=== PATIENT | female | born 1945 | race Caucasian/White ===

== ENCOUNTER 2016-12-08 15:14 | Inpatient (IN) | payer MEDICARE ==
[~2016-12-08] VITALS: Ht 162.6 cm; Wt 58.1 kg
[~2016-12-08 15:14] MED LIST: AMLO5TAB2 PO; Aspirin PO; CARB200T13 PO; DOCU-30 PO; DULO30CA2 PO; GABA100C8 PO; HYDR-3144 PO; HYDR-3343 PO; INSU100I18 SQ-INSULIN; INSU300I SQ; MELA3TAB PO; PRED10TA PO; RANI150T8 PO; TRAM50TA2 PO; VENL25TA PO; VENL75CA6 PO
[2016-12-08] MEDS ORDERED: SODIUM CHLORIDE FLUSH 10ML SYR IVF ONE (16:30)
[2016-12-08 16:46] LABS: HEMOGLOBIN 9.9 g/dL (11.7-16.4)
[2016-12-08] MEDS ORDERED: METH750T2 PO (16:56)
[2016-12-08] MEDS ORDERED: RANI300C PO (16:57)
[2016-12-08] MEDS ORDERED: MORP30SU PO (16:57)
[2016-12-08] MEDS ORDERED: INSU100V8 SQ (16:58)
[2016-12-08 17:07] LABS: BLOOD UREA NITROGEN 18 mg/dL (7-18)
[2016-12-08 17:32] LABS: ASPARTATE AMINO TRANSFERASE 16 U/L (15-37)
[2016-12-08 18:21] LABS: PATH.CAST-FLAG NOT PRESENT; SPERM-FLAG NOT PRESENT; SRC-FLAG NOT PRESENT; XTAL-FLAG NOT PRESENT; YLC-FLAG NOT PRESENT
[2016-12-08] MEDS ORDERED: LABETALOL 5MG/ML, 20ML IVPush ONE (18:30)
[2016-12-08] MEDS ORDERED: ENALAPRILAT 1.25 MG/ML, 2ML IV ONE (18:30)
[2016-12-08] MEDS ORDERED: ENALAPRILAT 1.25 MG/ML, 2ML ONE (18:49)
[2016-12-08] MEDS ORDERED: NS + 20MEQ KCL 1,000 ML IV SCH (18:56)
[2016-12-08] MEDS ORDERED: ONDANSETRON 2MG/ML, 2ML IVP PRN (19:00)
[2016-12-08] MEDS: HEPARIN 5,000 UNITS/ML, 1ML SQ SCH (19:00)
[2016-12-08] MEDS ORDERED: ENALAPRILAT 1.25 MG/ML, 2ML IV PRN (19:00)
[2016-12-08] MEDS ORDERED: POLYETHYLENE GLYCOL 17 GM PACKET PO PRN (19:00)
[2016-12-08] MEDS ORDERED: BISACODYL 10 MG SUPP PR PRN (19:00)
[2016-12-08] MEDS ORDERED: POTASSIUM CHLORIDE 10% 20 MEQ/15 ML UDC ONE (19:17)
[2016-12-08] MEDS ORDERED: POTASSIUM CHLORIDE 20 MEQ TAB.ER.PRT ONE (19:20)
[2016-12-08] MEDS ORDERED: GADOBUTROL 7.5 MMOL/7.5 ML PFS ONE (19:29)
[2016-12-08] MEDS ORDERED: POTASSIUM CHLORIDE 20 MEQ TAB.ER.PRT PO ONE (19:30)
[2016-12-08] MEDS ORDERED: LABETALOL 5MG/ML, 20ML ONE (19:44)
[2016-12-08] MEDS ORDERED: ONDANSETRON 2MG/ML, 2ML ONE (20:04)
[2016-12-08] MEDS ORDERED: MORPHINE SULFATE 4 MG/ML, 1ML ONE (20:04)
[2016-12-08] MEDS ORDERED: MORPHINE SULFATE 4 MG/ML, 1ML IVPush ONE (20:30)
[2016-12-08 20:42] VITALS: BP 181/77
[2016-12-08] MEDS ORDERED: MORPHINE SULFATE 30 MG PO SCH (21:00)
[2016-12-08] MEDS: CARBAMAZEPINE XR 200 MG TABLET PO SCH (21:00)
[2016-12-08] MEDS ORDERED: MELATONIN 3 MG TABLET PO SCH (21:00)
[2016-12-08] MEDS ORDERED: FAMOTIDINE 40 MG TABLET PO SCH (21:00)
[2016-12-08] MEDS: INSULIN DETEMIR 100 UNITS/ML, PEN SQ-INSULIN SCH (21:30)
[2016-12-08] MEDS: GABAPENTIN 100 MG CAPSULE PO SCH (22:13)
[2016-12-08] MEDS: METHOCARBAMOL 750 MG TABLET PO SCH (22:14)
[2016-12-08] MEDS: VENLAFAXINE 75 MG CAP ER PO SCH (22:14)
[2016-12-08] MEDS: CHLORTHALIDONE 25 MG TABLET PO SCH (22:14)
[2016-12-08] MEDS: DOCUSATE 100 MG CAPSULE PO SCH (22:56)
[2016-12-08] MEDS ORDERED: CARBAMAZEPINE 100 MG TAB.CHEW PO ONE (23:00)
[2016-12-09 02:35] VITALS: BP 139/60
[2016-12-09 05:28] LABS: HEMOGLOBIN 8.6 g/dL (11.7-16.4)
[2016-12-09 05:49] LABS: ASPARTATE AMINO TRANSFERASE 11 U/L (15-37); BLOOD UREA NITROGEN 18 mg/dL (7-18)
[2016-12-09 06:40] VITALS: BP 117/64
[2016-12-09] MEDS: HEPARIN 5,000 UNITS/ML, 1ML SQ SCH (08:25)
[2016-12-09] MEDS: GABAPENTIN 100 MG CAPSULE PO SCH ×3 (08:26→21:44)
[2016-12-09] MEDS: CHLORTHALIDONE 25 MG TABLET PO SCH (08:26)
[2016-12-09] MEDS: SENNA/DOCUSATE TABLET PO SCH (08:26)
[2016-12-09] MEDS: VENLAFAXINE 75 MG CAP ER PO SCH ×2 (08:27→21:00)
[2016-12-09] MEDS: CARBAMAZEPINE HOMEMEDPO SCH ×2 (08:28→16:39)
[2016-12-09] MEDS: CARBAMAZEPINE XR 200 MG TABLET PO SCH ×2 (08:30→16:41)
[2016-12-09] MEDS: DOCUSATE 100 MG CAPSULE PO SCH ×2 (08:32→21:49)
[2016-12-09 15:26] VITALS: BP 155/70
[2016-12-09] MEDS ORDERED: MELATONIN 3 MG TABLET PO PRN (16:30)
[2016-12-09] MEDS: ENOXAPARIN 40 MG/0.4 ML SQ SCH (17:15)
[2016-12-09 18:55] VITALS: BP 138/65
[2016-12-09] MEDS: INSULIN DETEMIR 100 UNITS/ML, PEN SQ-INSULIN SCH (21:00)
[2016-12-09] MEDS: METHOCARBAMOL 750 MG TABLET PO SCH (21:44)
[2016-12-10 02:17] VITALS: BP 157/60
[2016-12-10 05:07] LABS: HEMOGLOBIN 8.6 g/dL (11.7-16.4)
[2016-12-10 06:04] LABS: BLOOD UREA NITROGEN 25 mg/dL (7-18)
[2016-12-10] MEDS: LEVOTHYROXINE 25 MCG TABLET PO SCH (06:09)
[2016-12-10 07:10] VITALS: BP 131/50
[2016-12-10] MEDS: CHLORTHALIDONE 25 MG TABLET PO SCH ×2 (09:34→10:46)
[2016-12-10] MEDS: GABAPENTIN 100 MG CAPSULE PO SCH ×4 (09:34→21:25)
[2016-12-10] MEDS: DOCUSATE 100 MG CAPSULE PO SCH ×3 (09:34→21:23)
[2016-12-10] MEDS: VENLAFAXINE 75 MG CAP ER PO SCH ×3 (09:34→21:00)
[2016-12-10] MEDS: SENNA/DOCUSATE TABLET PO SCH ×2 (09:35→10:46)
[2016-12-10] MEDS ORDERED: MORP30TA PO (11:55)
[2016-12-10] MEDS ORDERED: CARB100T4 PO (11:59)
[2016-12-10] MEDS ORDERED: RANI150C PO (12:04)
[2016-12-10 15:32] VITALS: BP 136/56
[2016-12-10] MEDS: ENOXAPARIN 40 MG/0.4 ML SQ SCH (17:15)
[2016-12-10 18:32] VITALS: BP 155/62
[2016-12-10] MEDS: INSULIN DETEMIR 100 UNITS/ML, PEN SQ-INSULIN SCH (21:00)
[2016-12-10] MEDS: METHOCARBAMOL 750 MG TABLET PO SCH (21:24)
[2016-12-11 01:47] VITALS: BP 143/96
[2016-12-11 04:53] LABS: HEMOGLOBIN 8.8 g/dL (11.7-16.4)
[2016-12-11 05:04] LABS: BLOOD UREA NITROGEN 22 mg/dL (7-18)
[2016-12-11] MEDS: LEVOTHYROXINE 25 MCG TABLET PO SCH (06:10)
[2016-12-11 07:36] VITALS: BP 175/69
[2016-12-11] MEDS: VENLAFAXINE 75 MG CAP ER PO SCH ×2 (09:00→21:00)
[2016-12-11] MEDS: DOCUSATE 100 MG CAPSULE PO SCH ×3 (09:00→21:24)
[2016-12-11] MEDS: SENNA/DOCUSATE TABLET PO SCH (10:12)
[2016-12-11] MEDS: CHLORTHALIDONE 25 MG TABLET PO SCH (10:14)
[2016-12-11] MEDS: GABAPENTIN 100 MG CAPSULE PO SCH ×3 (10:14→21:26)
[2016-12-11 13:51] VITALS: BP 176/67
[2016-12-11] MEDS: ENOXAPARIN 40 MG/0.4 ML SQ SCH (16:22)
[2016-12-11 18:39] VITALS: BP 183/70
[2016-12-11] MEDS: METHOCARBAMOL 750 MG TABLET PO SCH (21:25)
[2016-12-11] MEDS: INSULIN DETEMIR 100 UNITS/ML, PEN SQ-INSULIN SCH (21:33)
[2016-12-12] VITALS (7 sets, daily range): BP systolic 163–191; BP diastolic 64–79
[2016-12-12 05:37] LABS: HEMOGLOBIN 9.3 g/dL (11.7-16.4)
[2016-12-12] MEDS: LEVOTHYROXINE 25 MCG TABLET PO SCH (06:05)
[2016-12-12 06:09] LABS: ASPARTATE AMINO TRANSFERASE 16 U/L (15-37); BLOOD UREA NITROGEN 19 mg/dL (7-18)
[2016-12-12] MEDS ORDERED: LEVOTHYROXINE 100 MCG INJ IVPush ONE (09:30)
[2016-12-12] MEDS: VENLAFAXINE 75 MG CAP ER PO SCH ×2 (10:06→21:00)
[2016-12-12] MEDS: CHLORTHALIDONE 25 MG TABLET PO SCH (10:07)
[2016-12-12] MEDS: DOCUSATE 100 MG CAPSULE PO SCH ×2 (10:08→21:44)
[2016-12-12] MEDS: SENNA/DOCUSATE TABLET PO SCH (10:08)
[2016-12-12] MEDS: GABAPENTIN 100 MG CAPSULE PO SCH ×3 (10:08→21:44)
[2016-12-12 13:06] LABS: ALBUMIN 2.9 g/dL (2.9-4.4); ALPHA-1-GLOBULIN 0.3 g/dL (0.0-0.4); GAMMA GLOBULIN 0.6 g/dL (0.4-1.8); PROTEIN TOTAL 5.8 g/dL (6.0-8.5)
[2016-12-12] MEDS ORDERED: MORPHINE SULFATE 4 MG/ML, 1ML ONE (15:36)
[2016-12-12] MEDS ORDERED: MAGNESIUM SULFATE PMX 2GM/50ML 50 ML IV ONE (16:00)
[2016-12-12] MEDS ORDERED: MORPHINE SULFATE 4 MG/ML, 1ML IV ONE (16:00)
[2016-12-12 16:28] LABS: IS PT STATUS REG ER OR PRE ER? NO
[2016-12-12] MEDS ORDERED: NITROGLYCERIN 0.4 MG/SPRAY SL PRN (16:30)
[2016-12-12] MEDS ORDERED: NITROGLYCERIN 0.4 MG BOTTLE (25 TABS) SL PRN (16:30)
[2016-12-12] MEDS ORDERED: MORPHINE SULFATE 4 MG/ML, 1ML IVPush PRN (16:30)
[2016-12-12] MEDS: ENOXAPARIN 40 MG/0.4 ML SQ SCH (18:24)
[2016-12-12] MEDS: AMLODIPINE 5 MG TABLET PO SCH (21:00)
[2016-12-12 21:36] LABS: IS PT STATUS REG ER OR PRE ER? NO
[2016-12-12] MEDS: INSULIN DETEMIR 100 UNITS/ML, PEN SQ-INSULIN SCH (21:45)
[2016-12-12] MEDS: METHOCARBAMOL 750 MG TABLET PO SCH (21:45)
[2016-12-13 01:17] VITALS: BP 151/68
[2016-12-13] MEDS: ACETAMINOPHEN 325 MG TABLET PO PRN ×2 (01:38→14:08)
[2016-12-13] MEDS: LEVOTHYROXINE 25 MCG TABLET PO SCH (04:56)
[2016-12-13 06:36] LABS: HEMOGLOBIN 9.4 g/dL (11.7-16.4)
[2016-12-13 06:44] LABS: BLOOD UREA NITROGEN 18 mg/dL (7-18)
[2016-12-13 06:52] LABS: IS PT STATUS REG ER OR PRE ER? NO
[2016-12-13 07:38] VITALS: BP 155/71
[2016-12-13] MEDS: AMLODIPINE 5 MG TABLET PO SCH (10:08)
[2016-12-13] MEDS: GABAPENTIN 100 MG CAPSULE PO SCH ×2 (10:08→15:42)
[2016-12-13] MEDS: VENLAFAXINE 75 MG CAP ER PO SCH (10:09)
[2016-12-13] MEDS: CHLORTHALIDONE 25 MG TABLET PO SCH (10:09)
[2016-12-13] MEDS: DOCUSATE 100 MG CAPSULE PO SCH (10:10)
[2016-12-13] MEDS: SENNA/DOCUSATE TABLET PO SCH (10:10)
[2016-12-13 13:20] VITALS: BP 165/67
[2016-12-13] MEDS: ENOXAPARIN 40 MG/0.4 ML SQ SCH (16:30)
[2016-12-13] MEDS ORDERED: INSU100I28 SQ-INSULIN (17:01)
[2016-12-13] MEDS ORDERED: HYDR-3343 PO (17:01)
[2016-12-13] MEDS ORDERED: VENL75CA6 PO (17:01)
[2016-12-13] MEDS ORDERED: GABA100C8 PO (17:01)
[2016-12-13] MEDS ORDERED: POLY17PO5 PO (17:01)
[2016-12-13] MEDS ORDERED: AMLO5TAB2 PO (17:01)
[2016-12-13] MEDS ORDERED: DOCU-30 PO (17:01)
[2016-12-13] MEDS ORDERED: CHLO25TA PO (17:01)
[2016-12-13] MEDS ORDERED: ENOX40SY4 SQ (17:01)
[2016-12-13] MEDS ORDERED: SENN1TAB7 PO (17:01)
[2016-12-13] MEDS ORDERED: LEVO100T PO (17:01)
[2016-12-13] MEDS ORDERED: MORP30TA3 PO (17:01)
[2016-12-13] MEDS ORDERED: METH750T2 PO (17:01)
[2016-12-13] MEDS ORDERED: MELA3TAB PO (17:01)
[2016-12-13 18:50] VITALS: BP 146/63
== END 2016-12-13 19:40 | DRG 70 ==
LOC: ED 16:48 → SUATTDRO 18:07 → EDIP 18:10 → 3NE 20:49 → 5SO 12-12 15:56
PROVIDERS: ATTEND Internal Medicine
DX: G93.41 Metabolic encephalopathy (principal); E43 Unspecified severe protein-calorie malnutrition; E87.1 Hypo-osmolality and hyponatremia; F11.20 Opioid dependence, uncomplicated; I16.0 Hypertensive urgency; E11.42 Type 2 diabetes mellitus with diabetic polyneuropathy; E87.6 Hypokalemia; D64.9 Anemia, unspecified; E78.5 Hyperlipidemia, unspecified; G89.29 Other chronic pain; M48.06 Spinal stenosis, lumbar region; M54.9 Dorsalgia, unspecified; K21.9 Gastro-esophageal reflux disease without esophagitis; I10 Essential (primary) hypertension; K80.20 Calculus of gallbladder without cholecystitis without obstruction; E03.9 Hypothyroidism, unspecified; F03.90 Unspecified dementia, unspecified severity, without behavioral disturbance, psychotic disturbance, mood disturbance, and anxiety; M54.16 Radiculopathy, lumbar region; Z80.3 Family history of malignant neoplasm of breast; Z79.4 Long term (current) use of insulin; Z90.49 Acquired absence of other specified parts of digestive tract
CPT/HCPCS: 36415; 71010; 72158; 80048; 80053; 80156; 81001; 82085; 82140; 82175; 82390; 82436; 82525; 82533; 82550; 82570; 82600; 82607; 82746; 82962; 83036; 83655; 83735; 83825; 83880; 84100; 84133; 84155; 84165; 84300; 84436; 84439; 84443; 84481; 84482; 84484; 84550; 85025; 85651; 86141; 86850; 86900; 93005; 93306; 95819; 96374; 96375; A9585; J1650; J2405; 92523-GN; J1815; J3475